=== PATIENT | male | born 1955 | race Caucasian/White ===

== ENCOUNTER 2017-05-03 13:24 | Outpatient (CLI) | payer BC ==
[2017-05-03 13:54] LABS: Hematocrit 44.4 % (42.0-52.0); Mean Platelet Volume 7.9 fL (7.4-10.4); Red Blood Cell (RBC) Count 4.57 mill/uL (4.70-6.10); White Blood Cell (WBC) Count 5.7 thou/uL (4.8-10.8)
[2017-05-03 14:18] LABS: Anion Gap 11 mmol/L (10-20); BUN (Urea Nitrogen) 12 mg/dL (8.4-25.7); Calc. Creatinine Clearance 0 mL/min (70-130); Calcium 8.8 mg/dL (7.8-10.44); Carbon Dioxide 26 mmol/L (22-29); Chloride 104 mmol/L (98-107); Estimated GFR-MDRD Greater than 90
== END 2017-05-03 13:25 | disposition home or self-care (01) ==
LOC: LABBT 13:24
PROVIDERS: ATTEND Orthopaedic Surgery
DX: Z01.818 Encounter for other preprocedural examination (principal); M72.0 Palmar fascial fibromatosis [Dupuytren]
CPT/HCPCS: 80048; 85027; 93005; 93010

== ENCOUNTER → 2017-05-08 | Day surgery (SDC) | payer BC ==
[2017-05-03 13:54] VITALS: BMI 25.0
[~2017-05-08] MED LIST: Bupivacaine PF 0.5% 30 ML VIAL ONE; Bupivacaine/Epinephrine 0.25% 30 ML VIAL ONE; Dexamethasone 20 MG/5 ML VIAL ONE; Fentanyl 100 MCG/2 ML VIAL ONE; Fentanyl 250 MCG/5 ML VIAL ONE; Lidocaine 1% PF 5 ML VIAL ONE; Neomycin-Polymyxin 1 ML AMP ONE; Ondansetron HCl/PF 4 MG/2 ML Vial ONE; Propofol 200 MG/20 ML VIAL ONE
--- NOTE | 2017-05-08 12:27 | OP ---
DATE OF OPERATION: 05/08/2017 PREOPERATIVE DIAGNOSIS: Dupuytren's contracture involving the proximal interphalangeal joint of the right little finger. POSTOPERATIVE DIAGNOSIS: Dupuytren's contracture involving the proximal interphalangeal joint of the right little finger. PROCEDURE: Dupuytren contracture release, right little finger. SURGEON: David Hair M.D. ANESTHESIA: General. TECHNIQUE: The patient was given preoperative IV antibiotics, taken to the operating room, placed in the supine position. Satisfactory general anesthesia was performed. The right upper extremity was sterilely prepped and draped in the usual fashion. After exsanguination, the tourniquet was raised t o 250 mmHg. A longitudinal incision was made in the palmar aspect of the little finger and extending just distal to the PIP joint and down to the MP joint. A Z-incision was also made to help lengthen the skin in this area. Blunt and sharp dissection was performed. The fibrous tissue was sharply cut from the overlying skin. The neurovascular structures were identified on both sides of the little f radha and the large Dupuytren's scar tissue cord was removed. The flexor tendon was found to be inta ct. Flexor tendon sheath was incised at the PIP joint and the tendons were moved both radially and u lnarly and the check rein ligaments that were very large were cut from the distal aspect of the proxi mal phalanx and excised. This allowed for full extension of the PIP joint. The wound was then irrig ated with antibiotic solution and the lengthening was performed and the wound was closed with 3-0 Rap juan. The base of the finger was then injected with 10 mL of 0.5% Marcaine plain. Sterile dressing w as applied. The tourniquet was released. The patient was awakened, extubated, and transferred to [facility] recovery room in stable condition. ESTIMATED BLOOD LOSS: None. COMPLICATIONS: None. TOURNIQUET TIME: 41 minutes.
== END ==
LOC: SDC 05:46
PROVIDERS: ATTEND Orthopaedic Surgery
PROC: 0JNJ0ZZ Release Right Hand Subcutaneous Tissue and Fascia, Open Approach (ICD-10-PCS; principal; 2017-05-08)
DX: M72.0 Palmar fascial fibromatosis [Dupuytren] (principal); M19.90 Unspecified osteoarthritis, unspecified site; K21.9 Gastro-esophageal reflux disease without esophagitis; Z79.1 Long term (current) use of non-steroidal anti-inflammatories (NSAID); Z79.899 Other long term (current) drug therapy; Z88.8 Allergy status to other drugs, medicaments and biological substances; Z90.89 Acquired absence of other organs; Z98.890 Other specified postprocedural states
CPT/HCPCS: J1100; J2001; J2405; J2704; J3010; S0020

== ENCOUNTER 2018-03-22 14:48 | Outpatient (CLI) | payer BC ==
[~2018-03-22 14:48] MED LIST changes: -Bupivacaine PF 0.5% 30 ML VIAL ONE; -Bupivacaine/Epinephrine 0.25% 30 ML VIAL ONE; -Dexamethasone 20 MG/5 ML VIAL ONE; -Fentanyl 100 MCG/2 ML VIAL ONE; -Fentanyl 250 MCG/5 ML VIAL ONE; +Gadobenate Dimeglumine 529 MG/1 ML (20ML VIAL) ONE; -Lidocaine 1% PF 5 ML VIAL ONE; -Neomycin-Polymyxin 1 ML AMP ONE; -Ondansetron HCl/PF 4 MG/2 ML Vial ONE; -Propofol 200 MG/20 ML VIAL ONE
--- NOTE | 2018-03-22 17:46 | RAD ---
LUMBAR SPINE FOUR VIEWS: 03/22/18 HISTORY: Low back pain. FINDINGS: Five lumbar type vertebrae. Pedicles are intact. Vertebral body heights are maintained. Postoperative changes at the L5 level. Osteophytosis throughout the lower facets. No abnormal translational motion upon flexion or extension. Calcification over the arterial structures. IMPRESSION: Degenerative and postoperative changes lower lumbar spine. No acute osseous abnormalities are demonst rated. Atherosclerosis. POS: MICHAEL
--- NOTE | 2018-03-22 17:47 | MRI ---
MRI LUMBAR SPINE WITH AND WITHOUT GADOLINIUM CONTRAST: Date: 03/22/18 HISTORY: Low back pain with bilateral leg radiculopathy, left greater than right. Prior surgery. FINDINGS: Conus medullaris has a normal appearance. Mild degenerative changes lower thoracic spine. Desiccation of all of the intervertebral discs with mild discogenic end plate changes within the bone marrow. He mangiomas within the bone marrow of the L3 vertebra. Fatty replacement of bone marrow is most pronoun julio within the sacrum. T12-L1: Mild osteophytosis. Central canal and neural foramina are patent. L1-2: Very mild disc bulge to the left of midline. Degenerative changes of each facet. Mild stenosis of eac h neural foramen. L2-3: Disc space narrowing. Mild osteophytosis. Central canal and neural foramina are patent. L3-4: Disc space narrowing. Mild disc bulge and circumferential degenerative changes. Mild stenosis of the central canal. Moderate to severe right and moderate left foraminal stenoses. L4-5: Disc space narrowing. Posterior operative decompression. Osteophytosis of each facet. Severe bilatera l foraminal stenoses. L5-S1: Disc space narrowing. Mild disc bulge. Thecal sac is patent. Degenerative changes with severe bilater al foraminal stenoses. IMPRESSION: Postoperative and degenerative changes of lumbar spine as detailed above. Stenoses are most severe at each neural foramen at the lowest two levels. Clinical correlation regarding each L4 and L5 dermatom e is required. POS: MICHAEL
== END 2018-03-22 14:49 | disposition home or self-care (01) ==
LOC: BICMRI 14:48
PROVIDERS: ATTEND Surgery
DX: M47.26 Other spondylosis with radiculopathy, lumbar region (principal); M51.16 Intervertebral disc disorders with radiculopathy, lumbar region; I70.90 Unspecified atherosclerosis; M99.83 Other biomechanical lesions of lumbar region; Z98.890 Other specified postprocedural states
CPT/HCPCS: 72110; 72158; 82565; A9579

== ENCOUNTER 2018-09-24 15:17 | Outpatient (CLI) | payer BC ==
[2018-09-24 17:18] LABS: Hemoglobin 18.7 g/dL (14.0-18.0); Mean Corpuscular HGB CONC 32.4 g/dL (32.0-36.0); Mean Corpuscular Hemoglobin 32.5 pg (27.0-31.0); Mean Platelet Volume 8.1 fL (7.4-10.4); Platelet Count 190 thou/uL (130-400); RBC Distribution Width 12.9 % (11.5-14.5); Red Blood Cell (RBC) Count 5.76 mill/uL (4.70-6.10); White Blood Cell (WBC) Count 7.9 thou/uL (4.8-10.8)
[2018-09-24 17:40] LABS: Anion Gap 15 mmol/L (10-20); BUN (Urea Nitrogen) 8 mg/dL (8.4-25.7); Calc. Creatinine Clearance 0 mL/min (70-130); Calcium 9.2 mg/dL (7.8-10.44); Carbon Dioxide 24 mmol/L (23-31); Chloride 102 mmol/L (98-107); Estimated GFR-MDRD Greater than 90; Glucose 101 mg/dL (80-115); Potassium 4.5 mmol/L (3.5-5.1); Sodium 136 mmol/L (136-145)
--- NOTE | 2018-09-25 17:07 | EKG ---
Test Reason : Blood Pressure : / mmHG Vent. Rate : 085 BPM Atrial Rate : 085 BPM P-R Int : 184 ms QRS Dur : 074 ms QT Int : 360 ms P-R-T Axes : 074 082 052 degrees QTc Int : 428 ms Normal sinus rhythm Right atrial enlargement Septal infarct , age undetermined Abnormal ECG When compared with ECG of 03-MAY-2017 13:19, No significant change was found Confirmed by Janet PUENTES ([id number]) on 09/25/2018 5:06:54 PM Referred By: FLORENCE Confirmed By:Janet PUENTES
== END 2018-09-24 15:18 | disposition home or self-care (01) ==
LOC: LABBT 15:17
PROVIDERS: ATTEND Orthopaedic Surgery
DX: Z01.818 Encounter for other preprocedural examination (principal); S83.241A Other tear of medial meniscus, current injury, right knee, initial encounter; S83.281A Other tear of lateral meniscus, current injury, right knee, initial encounter
CPT/HCPCS: 80048; 85027; 93005; 93010

== ENCOUNTER 2018-09-26 06:48 | Day surgery (SDC) | payer BC ==
[2018-09-24 17:01] VITALS: BMI 22.4
[2018-09-26] MEDS ORDERED: Fentanyl 100 MCG/2 ML VIAL ONE ×3 (08:13→11:08)
[2018-09-26] MEDS ORDERED: Bupivacaine HCl 0.5%/Epinephrine 1:200,000/PF 30 ml Vial ONE (08:56)
[2018-09-26] MEDS ORDERED: HYDROcodone/Acetaminophen 5/325 mg Tablet ONE (11:38)
[2018-09-26] MEDS ORDERED: Lidocaine 1% PF 5 ML VIAL ONE (15:27)
[2018-09-26] MEDS ORDERED: Ketorolac Tromethamine 30 MG/ML VIAL ONE (15:27)
[2018-09-26] MEDS ORDERED: PHENYLEPHRINE-NS 100 MCG/ML 10 ML SYRINGE ONE (15:27)
[2018-09-26] MEDS ORDERED: Ondansetron PF 4 MG/2 ML Vial ONE (15:27)
[2018-09-26] MEDS ORDERED: PROPOFOL 200 MG/20 ML VIAL ONE (15:27)
[2018-09-26] MEDS ORDERED: Dexamethasone 20 MG/5 ML VIAL ONE (15:27)
--- NOTE | 2018-09-26 17:06 | OP ---
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 POSTOPERATIVE DIAGNOSIS: Complex tear in the posterior horn of the medial and lateral menisci with arthritic changes in all 3 compartments of the right knee. PROCEDURE PERFORMED: Arthroscopy of the right knee with partial medial and lateral meniscectomies and shaving all 3 compartments. ANESTHESIA: General. TECHNIQUE: The patient was given preoperative IV antibiotics, taken to the operating room, and placed in the supine position. Satisfactory general anesthesia was performed. The right lower extremity was placed in a leg valverde and sterilely prepped and draped in the usual fashion. After exsanguination, tourniquet was raised to 250 mmHg in the proximal thigh. The right knee was then arthroscoped through the usual anteromedial and anterolateral portals. Upon entering the suprapatellar pouch, the patient was noted to have some synovitis and there was some scar tissue present. This was debrided with a shaver. There was arthritic changes in the patellofemoral joint. The shaver was used to smooth down the fibrillating cartilage under the patella and in the femoral trochlea. The lateral compartment had complex tear involving the posterior horn of the lateral meniscus. There was some tearing in the anterior horn and a partial lateral meniscectomy was performed using shaver and a surface ArthroWand. There was arthritic changes in the lateral compartment as well with some narrowing or thinning of the articular cartilage on the femoral condyle. This was also shaved and smoothed down. There was intact anterior cruciate ligament. There was spurring in the proximal anterior tibia in front of the anterior cruciate ligament. The medial compartment had more arthritis with significant thinning of the articular cartilage. This was also smoothed down. There was complex tear involving the posterior horn of the medial meniscus. A partial medial meniscectomy was performed using the shaver and the surface ArthroWand. During this surgery, all debris was irrigated out of the knee joint. The instruments were removed. The portals were closed with 3-0 Rapide. The knee joint was injected with 2 mL dexamethasone, 30 mL of 0.5% Marcaine with epinephrine. Sterile dressing was applied. Tourniquet was released. Leg was taken out of the leg valverde. The patient was awakened, extubated, and transferred to the recovery room in stable condition. ESTIMATED BLOOD LOSS: None. COMPLICATIONS: None. TOURNIQUET TIME: 65 minutes. DISCHARGE MEDICATION: Tylenol No. 4, one every 6 hours as needed for pain, #50. FOLLOWUP: Follow up in my office in 1 week. Job ID: [id number]
== END 2018-09-26 12:44 | disposition home or self-care (01) ==
LOC: SDC 06:48
PROVIDERS: ATTEND Orthopaedic Surgery
PROC: 0SBC4ZZ Excision of Right Knee Joint, Percutaneous Endoscopic Approach (ICD-10-PCS; principal; 2018-09-26)
DX: S83.271A Complex tear of lateral meniscus, current injury, right knee, initial encounter (principal); S83.231A Complex tear of medial meniscus, current injury, right knee, initial encounter; M17.11 Unilateral primary osteoarthritis, right knee; M65.88 Other synovitis and tenosynovitis, other site; H91.90 Unspecified hearing loss, unspecified ear; Z79.1 Long term (current) use of non-steroidal anti-inflammatories (NSAID); Z79.82 Long term (current) use of aspirin; Z79.899 Other long term (current) drug therapy; Z88.8 Allergy status to other drugs, medicaments and biological substances; Z98.890 Other specified postprocedural states
CPT/HCPCS: J0670; J0690; J1100; J1885; J2001; J2405; J2704; J3010